=== PATIENT | male | born 1995 | race Caucasian/White ===

== ENCOUNTER 2017-06-25 18:30 | Emergency (ER) | payer OTHER ==
[~2017-06-25] VITALS: Ht 162.6 cm; Wt 72.9 kg
[2017-06-25] MEDS ORDERED: ALBUTEROL SULFATE 2.5 MG/3 ML NPPB SCH (19:00)
[2017-06-25] MEDS ORDERED: SODIUM CHLORIDE FLUSH 10ML SYR IVF ONE (19:00)
[2017-06-25] MEDS ORDERED: SODIUM CHLORIDE 0.9% 1,000ML IVBOLUS ONE (19:00)
[2017-06-25 19:17] LABS: HEMATOCRIT 44.4 % (39.2-51.8); HEMOGLOBIN 14.4 g/dL (13.7-18.0)
[2017-06-25 19:25] LABS: BLOOD UREA NITROGEN 14 mg/dL (7-18)
[2017-06-25] MEDS ORDERED: ALBUTEROL SULFATE 2.5 MG/3 ML NPPB ONE (19:30)
[2017-06-25 20:02] LABS: RAPID INFLUENZA A Negative (Negative); RAPID INFLUENZA B Negative (Negative)
[2017-06-25 20:40] VITALS: BP 130/72
== END 2017-06-25 20:43 | disposition home or self-care (01) ==
LOC: ED 20:22
DX: J20.9 Acute bronchitis, unspecified (principal); B96.89 Other specified bacterial agents as the cause of diseases classified elsewhere
CPT/HCPCS: 36415; 71020; 80048; 82040; 83605; 85025; 87400; 94640; 96360; 99285; J7030; J7613